=== PATIENT | male | born 1945 | race Caucasian/White ===

== ENCOUNTER → 2017-10-07 | Outpatient (CLI) | payer OTHER ==
[~2017-10-07] MED LIST: ALLOPURINOL 10100 M1 PO; ALLOPURINOL 30300 M1 PO; AMARYL2 MG PO; ATORVASTATIN CA20 MG PO; AZITHROMYCIN 2250 MG PO; CARDIZEM CD 18180 M3 PO; CARDIZEM CD180 MG PO; CENTRUM COMPLE1 EACH PO; CENTRUM SILVER1 EAC4 PO; COUMADIN 1MG TAB1 M1 PO; COUMADIN 5 MG TA5 M1 PO; COUMADIN7.5 MG PO; COZAAR 25MG TAB25 M1 PO; COZAAR100 MG PO; DILTIAZEM ER180 M1 PO; ELIQUIS5 MG PO; ENOXAPARIN100 MG/1 M SQ; GLUCOPHAGE1000 MG PO; JANTOVEN5 MG PO; JANTOVEN7.5 MG PO; LEVAQUIN 500 M500 M2 PO; LIPITOR20 MG PO; LISINOPRIL40 MG PO; PACERONE 200 M200 M1 PO; PANTOPRAZOLE SO40 M1 PO; PROPAFENONE 22225 M1 PO; SOTALOL 120 MG120 M1 PO; TIKOSYN.25 PO; TOPROL XL25 MG PO; TUSSIONEX PENN473 ML PO; ZANTAC 150MG T150 MG PO; [UNRECOGNIZED DRUG - OTHER] PO
--- NOTE | ~2017-10-07 | 2DMMODE ---
[facility] [address] [place] [address] 2 D/M-MODE ECHOCARDIOGRAM Name: HENNYDAVID Rajinder Room #: [id number] Admission: 10/07/17 Attend Phys: Yanick Mack Discharge: Date of : 43 Date of Service: 10/07/17 1340 Report #: [id number] THIS REPORT FOR: //name// APPROVED REPORT Study performed: 10/07/2017 13:04:17 EXAM: Comprehensive 2D, Doppler, and color-flow Echocardiogram Patient Location: Out-Patient Status: routine BSA: 2.19 HR: 115 bpm BP: 115/91 mmHg Rhythm: Atrial Fibrillation Other Information Study Quality: Good Indications Atrial Fibrillation HX: Ablation 2D Dimensions RVDd: 36.63 mm LVEF(%): 59.37 (>50%) IVSd: 14.62 (7-11mm) LVOT Diam: 21.13 (18-24mm) LVDd: 36.86 mm PWd: 9.73 (7-11mm) Ascending Ao: 39.64 (22-36mm) LVDs: 25.48 (25-40mm) Aortic Root: 39.76 mm Bell's LVEF: 59.37 % Volumes Left Atrial Volume (Systole) Single Plane 4CH: 75.38 mL Single Plane 2CH: 88.27 mL LA ESV Index: 40.00 mL/m2 Aortic Valve AoV Peak Trav.: 1.16 m/s AO Peak Gr.: 5.65 mmHg LVOT Max P.32 mmHg LVOT Max V: 1.02 m/s KODI Vmax: 3.09 cm2 Mitral Valve MV Decel. Time: 123.80 ms [facility] [address] [place] [address] 2 D/M-MODE ECHOCARDIOGRAM Name: DAVID INMAN Rajinder Room #: REG [facility]#: [id number] Admission: 10/07/17 Attend Phys: Yanick Mack Discharge: Date of : 43 Date of Service: 10/07/17 1340 Report #: [id number] MV E Max Trav.: 1.06 m/s Pulmonary Valve PV Peak Trav.: 1.01 m/s PV Peak Gr.: 4.08 mmHg Tricuspid Valve TR Peak Trav.: 2.18 m/s RAP Estimate: 5.00 mmHg TR Peak Gr.: 19.06 mmHg PA Pressure: 24.00 mmHg Left Ventricle The left ventricle is normal size. There is normal LV segmental wall motion. Moderate basal septal hypertrophy is present. Left ventricular systolic function is normal. LVEF is >55%. This study is not technically sufficient to allow evaluation of the LV diastolic function due to atrial fibrillation. Right Ventricle The right ventricle is normal size. The right ventricular systolic function is normal. Atria Left atrium is mild to moderately dilated. The right atrium size is normal. Aortic Valve Aortic valve is mildly calcified. No aortic regurgitation is present. There is no aortic valvular stenosis. Mitral Valve Mild mitral annular calcification. Moderate mitral regurgitation. No evidence of mitral valve stenosis. Tricuspid Valve The tricuspid valve is normal in structure. Mild tricuspid regurgitation. Estimated PAP is 25mmHg. Pulmonic Valve The pulmonary valve is normal in structure. Trace pulmonic regurgitation. Great Vessels Aortic root is mildly dilated. The ascending aorta is mildly dilated (4.0cm). IVC is normal in size and collapses >50% with inspiration. [facility] [address] [place] [address] 2 D/M-MODE ECHOCARDIOGRAM Name: DAVID INMAN Room #: REG [facility].#: [id number] Admission: 10/07/17 Attend Phys: [facility]ick [facility] Discharge: Date of : 43 Date of Service: 10/07/17 1340 Report #: [id number] Pericardium There is no pericardial effusion. <Conclusion> Left ventricular systolic function is normal. There is normal LV segmental wall motion. LVEF is >55%. Left atrium is mild to moderately dilated. Aortic valve is mildly calcified. No aortic regurgitation or stenosis Mild mitral annular calcification. Moderate mitral regurgitation. Mild tricuspid regurgitation. Estimated pulmonary arery pressure of 25mmHg. The ascending aorta is mildly dilated (4.0cm). There is no pericardial effusion. <ELECTRONICALLY SIGNED> By: Lukasz Acosta MD, FACC 10/07/17 1340 1340 1340 Lukasz cAosta MD, FACC /INF
== END ==
LOC: CV 10:23
DX: I08.1 Rheumatic disorders of both mitral and tricuspid valves (principal); I48.91 Unspecified atrial fibrillation; I10 Essential (primary) hypertension

== ENCOUNTER → 2017-10-13 | Outpatient (CLI) | payer OTHER ==
[2017-10-13 08:22] LABS: HEMATOCRIT 45.4 % (42.0-52.0); HEMOGLOBIN 15.2 gm/dL (14.0-18.0); MCH 31.5 pg (26.0-34.0); MCHC 33.5 g/dL (28.0-37.0); RBC 4.83 mil/uL (4.50-6.00); RDW 14.3 % (10.5-14.5); WBC 7.6 thou/uL (4.0-11.0)
[2017-10-13 09:11] LABS: ALBUMIN 3.9 g/dL (3.4-5.0); CALCIUM 9.5 mg/dL (8.5-10.1); CREATININE 1.4 mg/dL (0.7-1.3); POTASSIUM 4.6 mmol/L (3.5-5.1); TOTAL BILIRUBIN 0.6 mg/dL (<0.1-1.0); TOTAL PROTEIN 6.5 g/dL (6.4-8.2)
== END ==
LOC: CAT 07:53
PROVIDERS: Internal Medicine Cardiovascular Disease
DX: I48.91 Unspecified atrial fibrillation (principal); J98.11 Atelectasis

== ENCOUNTER 2017-10-30 06:37 | Observation (INO) | payer OTHER ==
[~2017-10-30] VITALS: Ht 177.8 cm; Wt 107.9 kg
[2017-10-30] VITALS (8 sets, daily range): BP systolic 141–164; BP diastolic 81–93
--- NOTE | ~2017-10-30 | D ---
[facility] [place] [address] DISCHARGE SUMMARY Name: DAVID INMAN Room #: 208-P [facility] Ney Tavarez#: [id number] Admission: 10/30/17 Attend Phys: Yanick Mack MD Discharge: 10/31/17 Date of : 43 Report #: [id number] THIS REPORT FOR: //name// CC: Yanick Carter DATE OF SERVICE: 10/31/2017 DISCHARGE DIAGNOSIS: Atrial fibrillation. PROCEDURES PERFORMED: Failed attempted AFib ablation. HISTORY: The patient is a 72-year-old with a history of paroxysmal AFib, who underwent an ablation several years ago by Dr. Moran. At that time, they had difficulties isolating the right superior pulmonary vein. He is here for repeat ablation. The patient underwent attempted ablation. The patient had evidence of a PFO which I did not really want to utilize and I could not cross with the cryosheath, regardless. I then performed a transseptal at a lower site in the septum. 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 I had difficulties crossing with an SL1 sheath, but then was able to dilate up using the cryo dilator, was able to get the SL1 across, but could not cross with the cryosheath. I then upsized utilizing a Agilis sheath. However, the aneurysmal interatrial septum, which was also fibrotic, made it impossible for me to cross with the cryosheath. I spent approximately 2 hours trying to cross with the cryosheath. Unfortunately, I did not have Cardio available and therefore, could not perform an RF ablation. As such, the procedure was aborted and there were no intraprocedural complications. HOSPITAL COURSE: The patient was monitored in the hospital overnight and did well. On telemetry, he remained in sinus rhythm. The following day, he denied any chest pain or shortness of breath. On physical, he was in no acute distress. Heart was regular rate and rhythm. Lungs were clear to auscultation bilaterally. His right groin had healed nicely with some mild ecchymosis from multiple sheath and catheter exchanges. As such, he was deemed stable for discharge home. The prior ablation had multiple complications including bleeding from the groin, requiring transfusion and a DVT and PE. That is why we have transitioned the patient over to Pradaxa, which does have a reversal agent if bleeding issues were to occur in the future. He was therefore discharged on Pradaxa and his sotalol 120 b.i.d. as well as his other home medications. We will follow up in 1 month. We discussed options including up titrating the sotalol, versus switching to amiodarone, versus a repeat ablation using [address] [address] DISCHARGE SUMMARY Name: DAVID INMAN Rajinder Room #: 208-P ASHLEY Tavarez#: [id number] Admission: 10/30/17 Attend Phys: Yanick Mack MD Discharge: 10/31/17 Date of : 43 Report #: [id number] radiofrequency ablation. He would like to think these things over and we will discuss this further as an outpatient. By: 0844 1124 Yanick Mack MD /nt
[~2017-10-30 06:37] MED LIST changes: -COZAAR100 MG PO; -ELIQUIS5 MG PO; +LOSARTAN POTASS25 MG PO
[2017-10-30 07:23] LABS: ABSOLUTE NEUTROPHILS 4.1 thou/uL (1.4-8.2); EOSINOPHILS 1.8 % (0.0-3.0); HEMATOCRIT 44.6 % (42.0-52.0); HEMOGLOBIN 15.1 gm/dL (14.0-18.0); LYMPHOCYTES 27.1 % (24.0-44.0); MCH 31.4 pg (26.0-34.0); MCHC 33.8 g/dL (28.0-37.0); MCV 92.8 fL (80.0-100.0); MONOCYTES 7.8 % (1.0-8.0); PLATELET COUNT 173 thou/uL (150-400); POLYS 62.3 % (36.0-66.0); RDW 13.7 % (10.5-14.5); WBC 6.6 thou/uL (4.0-11.0)
[2017-10-30 07:32] LABS: CALCIUM 9.7 mg/dL (8.5-10.1); CREATININE 1.4 mg/dL (0.7-1.3); POTASSIUM 4.2 mmol/L (3.5-5.1)
[2017-10-30 07:38] LABS: ALBUMIN 3.6 g/dL (3.4-5.0); APTT 37.3 Seconds (24.5-32.8); INR 1.1; PROTIME 11.2 Seconds (9.3-11.4); TOTAL BILIRUBIN 0.8 mg/dL (<0.1-1.0); TOTAL PROTEIN 6.5 g/dL (6.4-8.2)
[2017-10-30] MEDS ORDERED: PRADAXA150 MG PO (07:48)
[2017-10-31 00:22] VITALS: BP 124/78
[2017-10-31 03:39] VITALS: BP 121/62
[2017-10-31 07:58] VITALS: BP 134/76
[2017-10-31 08:00] VITALS: BP 134/76
[2017-10-31 10:19] VITALS: BP 134/76
== END 2017-10-31 10:57 | disposition home or self-care (01) ==
LOC: CATH 06:37 → 2N 13:29 → CATH 14:02 → 2N 10-31 10:57
PROVIDERS: Internal Medicine Cardiovascular Disease
DX: I48.0 Paroxysmal atrial fibrillation (principal); Q21.1 Atrial septal defect
CPT/HCPCS: 62110; 62900; 70005

== ENCOUNTER → 2017-11-06 | Outpatient (CLI) | payer OTHER ==
[~2017-11-06] MED LIST changes: +PRADAXA150 MG PO
== END ==
LOC: ULTRA 09:27
DX: S75.091A Other specified injury of femoral artery, right leg, initial encounter (principal); I82.811 Embolism and thrombosis of superficial veins of right lower extremity; X58.XXXA Exposure to other specified factors, initial encounter; Y93.89 Activity, other specified; Y92.89 Other specified places as the place of occurrence of the external cause; Y99.8 Other external cause status

== ENCOUNTER 2018-06-04 11:37 | Inpatient (IN) | payer OTHER ==
[~2018-06-04] VITALS: Ht 180.3 cm; Wt 98.8 kg
--- NOTE | ~2018-06-04 | H ---
[facility] [place] [address] HISTORY AND PHYSICAL Name: DAVID INMAN Room #: 201-P ADM IN M.R.#: [id number] Admission: 06/04/18 Attend Phys: José Palm Discharge: Date of : 43 Report #: [id number] THIS REPORT FOR: //name// CC: José Carter DATE OF SERVICE: 06/04/2018 HISTORY OF PRESENT ILLNESS: This is a very pleasant 73-year-old male patient with a long history of atrial fibrillation. He has been on medicine for some time. He is on greater than 160 mg of sotalol b.i.d. and in persistent atrial fibrillation. The patient does not feel well when he is in atrial fibrillation and was seen in the office. He now presents for discontinuation of sotalol, initiation of amiodarone with possible electrical cardioversion. PHYSICAL EXAMINATION: GENERAL: Well-developed, well-nourished male, resting comfortably in no acute distress. VITAL SIGNS: Temperature is 36.7, pulse is 92, respirations 18, blood pressure is 128/78, and pulse ox is 93 on room air. HEENT: Normocephalic, atraumatic. Pupils are equal, round, reactive to light and accommodation. Extraocular muscles are intact. Sclerae and conjunctivae are anicteric. NECK: JVD is normal. Carotid upstrokes are bilaterally symmetrical. No bruits are heard. No thyromegaly. No lymphadenopathy. LUNGS: Clear to auscultation. No wheezes, rhonchi or crackles. No CVA tenderness. CARDIAC: Demonstrates irregularly irregular rhythm with a controlled ventricular response. ABDOMEN: Soft, nontender, nondistended. Normal bowel sounds. EXTREMITIES: Without cyanosis, clubbing or edema. Distal pulses are intact. DTR symmetrical. NEUROLOGIC: Cranial nerves 2-12 are grossly normal and symmetrical. PSYCHIATRIC: Alert, oriented with normal affect. SKIN: Warm and dry. IMPRESSION: Paroxysmal atrial fibrillation, on high dose sotalol. I discussed atrial fibrillation ablation. I have discussed the use of amiodarone or Tikosyn as an alternative to sotalol since they are more potent. The patient wants to try the amiodarone first and if that fails, then we will proceed to atrial fibrillation ablation at a later date. We will admit for medical regimen change and possible [address] [place] [address] HISTORY AND PHYSICAL Name: HENNYDAVID Rajinder Room #: 201-P ADM IN R.#: [id number] Admission: 06/04/18 Attend Phys: José Palm Discharge: Date of : 43 Report #: [id number] electrical cardioversion. The risks, complications, and alternative have been discussed with the patient. He voices understanding and wishes to proceed. By: 0959 Geno3 José Palm MD /nt
--- NOTE | ~2018-06-04 | EKG ---
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: Noah WELCH : 1945 Requested By: José Palm Order Number: [id number] MD: Balwinder Powell Measurements Intervals [place] Rate: 75 P: 13 [place]: 198 QRS: -42 QRSD: 86 T: 0 QT: 396 QTc: 443 Interpretive Statements Sinus rhythm Consider left atrial enlargement Left axis deviation Compared to ECG 06/05/2018 07:50:49 Left-axis deviation now present Atrial fibrillation no longer present Left anterior fascicular block no longer present Electronically Signed On 06-06-2018 11:03:58 CDT by Balwinder Powell [email or web address] <ELECTRONICALLY SIGNED> By: Balwinder Powell MD 06/06/18 1103 1337 1337 Balwinder Powell MD /EPI
--- NOTE | ~2018-06-04 | EKG ---
[address] [address] ELECTROCARDIOGRAM REPORT Name: DAVID INMAN Room #: 201-P ADM IN M.R.#: [id number] Admission: 06/04/18 Attend Phys: José Palm Discharge: Date of : 43 Report #: [id number] THIS REPORT FOR: //name// [facility] Test Date: 2018-06-05 Test Time: 07:50:49 Pat Name: DAVID INMAN Department: Room: 201 P Gender: M Mover: EDWARD : 1945 Requested By: Randa Lieberman Order Number: [id number] MD: Lukasz Acosta Measurements Intervals [place] Rate: 85 P: [place]: QRS: -46 QRSD: 87 T: 4 QT: 372 QTc: 443 Interpretive Statements Atrial fibrillation Left anterior fascicular block Low voltage, precordial leads Abnormal R-wave progression, early transition Compared to ECG 12/31/2014 06:44:16 Atrial fibrillation has replaced sinus rhythm Electronically Signed On 06-05-2018 9:02:39 CDT by Lukasz Acosta [email or web address] <ELECTRONICALLY SIGNED> By: Lukasz Acosta MD, [facility] 06/05/18 0902 0750 0750 Lukasz Acosta MD, [facility] /EPI
[~2018-06-04 11:37] MED LIST changes: +COZAAR100 MG PO; +ELIQUIS5 MG PO; -LOSARTAN POTASS25 MG PO; -PRADAXA150 MG PO
[2018-06-04 15:25] VITALS: BP 118/76
[2018-06-04 19:36] VITALS: BP 128/78
[2018-06-05 04:21] VITALS: BP 102/61
[2018-06-05 04:22] VITALS: BP 125/92
[2018-06-05 07:43] VITALS: BP 135/98
[2018-06-05] MEDS ORDERED: PACERONE 200 M200 M1 PO (14:06)
[2018-06-05 16:38] VITALS: BP 120/83
[2018-06-05 16:41] VITALS: BP 135/98
== END 2018-06-05 17:29 | disposition home or self-care (01) | DRG 310 ==
LOC: 2N 11:37
PROC: 5A2204Z Restoration of Cardiac Rhythm, Single (ICD-10-PCS; principal; 2018-06-04)
DX: I48.0 Paroxysmal atrial fibrillation (principal); Z79.899 Other long term (current) drug therapy; Z79.01 Long term (current) use of anticoagulants
CPT/HCPCS: 10081

== ENCOUNTER 2021-01-20 15:38 | Inpatient (IN) | payer OTHER ==
[~2021-01-20] VITALS: Ht 177.8 cm; Wt 98.4 kg
[2021-01-20 15:41] VITALS: BP 221/98
[2021-01-20] MEDS ORDERED: CARVEDILOL12.5 MG PO (15:44)
[2021-01-20 16:01] LABS: ABSOLUTE NEUTROPHILS 6.7 thou/uL (1.4-8.2); BASOPHILS 0.5 % (0.0-2.0); EOSINOPHILS 1.2 % (0.0-3.0); HEMATOCRIT 42.8 % (42.0-52.0); HEMOGLOBIN 14.6 gm/dL (14.0-18.0); LYMPHOCYTES 14.7 % (24.0-44.0); MCH 32.7 pg (26.0-34.0); MCHC 34.1 g/dL (28.0-37.0); MCV 95.8 fL (80.0-100.0); MONOCYTES 7.4 % (1.0-8.0); PLATELET COUNT 164 thou/uL (150-400); POLYS 76.2 % (36.0-66.0); RBC 4.47 mil/uL (4.50-6.00); RDW 13.8 % (10.5-14.5); WBC 8.8 thou/uL (4.0-11.0)
[2021-01-20 16:09] LABS: ANION GAP 8 mmol/L (7-16); BUN 17 mg/dL (7-18); CALCIUM 9.3 mg/dL (8.5-10.1); CHLORIDE 106 mmol/L (98-107); CO2 26 mmol/L (21-32); CREATININE 1.7 mg/dL (0.7-1.3); GLUCOSE 173 mg/dL (74-106); POTASSIUM 4.4 mmol/L (3.5-5.1); SODIUM 140 mmol/L (136-145)
[2021-01-20 16:20] LABS: ALBUMIN 3.8 g/dL (3.4-5.0); DIRECT BILIRUBIN 0.1 mg/dL (<0.1-0.2); LIPASE 150 U/L (73-393); SGOT 27 U/L (15-37); SGPT 36 U/L (16-63); TOTAL BILIRUBIN 0.6 mg/dL (0.2-1.0); TOTAL PROTEIN 6.8 g/dL (6.4-8.2); TROPONIN-I <0.06 ng/mL (<0.06)
[2021-01-20 19:06] VITALS: BP 161/81
[2021-01-20 21:00] VITALS: BP 167/86
--- NOTE | 2021-01-21 04:29 | NUR ---
PT ARRIVED ON UNIT FROM ED AT 2030. ADMITTED WITH ABDOMINAL PAIN. DENIES NAUSEA. DENIES NEED FOR PAIN MEDICATION. GI CONSULTED. RESTING COMFORTABLY. NO NEEDS VOICED. CALL LIGHT WITHIN REACH. FREQUENT OBSERVATION.
[2021-01-21 05:17] LABS: HEMATOCRIT 39.1 % (42.0-52.0); HEMOGLOBIN 13.1 gm/dL (14.0-18.0); MCH 32.6 pg (26.0-34.0); MCHC 33.6 g/dL (28.0-37.0); RBC 4.03 mil/uL (4.50-6.00); WBC 7.7 thou/uL (4.0-11.0)
[2021-01-21 05:39] LABS: CALCIUM 8.3 mg/dL (8.5-10.1); CREATININE 1.5 mg/dL (0.7-1.3)
[2021-01-21 07:25] VITALS: BP 122/70
--- NOTE | 2021-01-21 11:34 | NUR ---
ASSUMED CARE OF PT. AT 7:00 AM. PT ALERT AND ORIENTED X 4. ASSESSMENT COMPLETED. DENIES PAIN IN ABDOMEN. CONTINENT OF BOWEL AND BLADDER. SL IN lEFT AC. PT HAD A SMALL FORMED BM THIS AM. MEDS GIVEN WITH NO ISSUES. vss cALL LIGHT WITHIN REACH. WILL CONTINUE TO MONITOR PT.
--- NOTE | 2021-01-21 11:36 | EKG ---
[address] [employer] [place] [address] ELECTROCARDIOGRAM REPORT Name: DAVID INMAN Room #: 437-P ADM IN M.R.#: [id number] Admission: 01/20/21 Attend Phys: Shashi Garcia MD Discharge: Date of : 43 Report #: [id number] [facility] ED Test Date: 2021-01-20 Test Time: 16:01:25 Pat Name: DAVID INMAN Department: Room: [facility] Gender: M Machine Ii Engraver: JCHAIAURORA : 1945 Requested By: Victor Manuel Santos Order Number: [id number] MD: Yanick Mack Measurements Intervals [place] Rate: 59 P: 13 ND: 226 QRS: -29 QRSD: 94 T: 12 QT: 441 QTc: 437 Interpretive Statements Sinus rhythm Prolonged ND interval Borderline left axis deviation Abnormal R-wave progression, early transition Compared to ECG 06/05/2018 13:37:23 First degree AV block now present Electronically Signed On 01-21-2021 11:36:41 CDT by Yanick Mack [email or web address] <ELECTRONICALLY SIGNED> By: Yanick Mack MD 01/21/21 1136 160 160 Yanick Mack MD /EPI
[2021-01-21 14:01] VITALS: BP 122/70
== END 2021-01-21 14:30 | disposition home or self-care (01) | DRG 389 ==
LOC: ER 15:38 → EROBS 17:58 → 4S 20:24
PROVIDERS: Nurse Practitioner; ADMIT Hospitalist; ATTEND Hospitalist
DX: K56.600 Partial intestinal obstruction, unspecified as to cause (principal); I48.20 Chronic atrial fibrillation, unspecified; I10 Essential (primary) hypertension; E78.00 Pure hypercholesterolemia, unspecified; E11.9 Type 2 diabetes mellitus without complications; M10.9 Gout, unspecified; Z86.711 Personal history of pulmonary embolism; Z79.01 Long term (current) use of anticoagulants; Z79.84 Long term (current) use of oral hypoglycemic drugs; Z79.899 Other long term (current) drug therapy
CPT/HCPCS: 10195